=== PATIENT | male | born 1960 | race African-American/Black ===

== ENCOUNTER 2019-08-20 11:46 | Outpatient (CLI) | payer BC, SELFPAY ==
[2019-08-20 12:26] LABS: Hemoglobin A1C 7.8 % (<5.7)
== END 2019-08-20 11:47 | disposition home or self-care (01) ==
DX: E11.9 Type 2 diabetes mellitus without complications (principal)
CPT/HCPCS: 36415; 83036

== ENCOUNTER 2020-01-28 08:51 | Outpatient (CLI) | payer BC, SELFPAY ==
[2020-01-28 09:46] LABS: Alanine Aminotransferase 40 U/L (4-50); Albumin Level 4.4 g/dL (3.5-5.1); Alkaline Phosphatase 105 U/L (38-126); Anion Gap 7 mmol/L (8-16); Aspartate Amino Transferase 40 U/L (17-59); Bilirubin,Total 0.6 mg/dL (0.2-1.3); Blood Urea Nitrogen 23 mg/dL (9-20); Calcium 9.3 mg/dL (8.4-10.2); Carbon Dioxide 34 mmol/L (22-30); Chloride 100 mmol/L (98-107); Cholesterol 118 mg/dL (0-200); Estimated Glomerular Filt Rate > 60; Glucose 152 mg/dL (75-110); HDL Direct 32 mg/dL; Potassium 3.7 mmol/L (3.4-5.0); Sodium 141 mmol/L (137-145); Triglycerides 101 mg/dL (<150); Uric Acid 6.9 mg/dL (3.5-8.5)
[2020-01-28 09:56] LABS: LDL Cholesterol Direct 49 mg/dL
== END 2020-01-28 08:52 | disposition home or self-care (01) ==
PROVIDERS: PCP Internal Medicine; Visit Provider Internal Medicine
DX: E78.2 Mixed hyperlipidemia (principal); E11.9 Type 2 diabetes mellitus without complications
CPT/HCPCS: 36415; 80053; 80061; 83036; 84550

== ENCOUNTER 2023-01-03 09:58 | Emergency (ER) | payer OTHER, SELFPAY ==
[2023-01-03 10:20] VITALS: BP 164/96; PULSE 84; RESP 16; TEMP 37; O2SAT 99
--- NOTE | 2023-01-03 10:31 | ED.BACK ---
HPI - Back Pain/Injury General Chief Complaint: Back Pain/Injury Stated Complaint: right side back pain Time Seen by Provider: 01/03/23 10:21 Source: patient and RN notes reviewed Mode of arrival: ambulatory Limitations: no limitations History of Present Illness HPI Narrative: Patient presents today complaining of right-sided low back pain x2 days. Three days ago he was helping someone lift a motorized scooter. The following day he woke up with severe back pain and spasms. Denies numbness or tingling in the extremities or genitals. Denies radiation of the pain. Denies loss of bowel or bladder control. He is currently pain-free at rest, which increases significantly with any movement. He has been using Tylenol and Leoncio-Barney with mild relief. Related Data Home Medications Medication Instructions Recorded Confirmed allopurinol 100 mg tablet 100 mg PO DAILY 01/03/23 01/03/23 carvedilol 6.25 mg tablet 6.25 mg PO DAILY 01/03/23 01/03/23 empagliflozin 10 mg tablet 10 mg PO DAILY 01/03/23 01/03/23 (Jardiance) glipizide 10 mg tablet, extended 10 mg PO DAILY 01/03/23 01/03/23 release 24 hr olmesartan 40 1 tablet PO DAILY 01/03/23 01/03/23 mg-hydrochlorothiazide 25 mg tablet omeprazole 40 mg capsule,delayed 40 mg PO DAILY 01/03/23 01/03/23 release pravastatin 20 mg tablet 20 mg PO DAILY 01/03/23 01/03/23 Allergies Allergy/AdvReac Type Severity Reaction Status Date / Time No Known Allergies Allergy Verified 01/03/23 10:24 Review of Systems Review of Systems: CONSTITUTIONAL: Denies body aches, fever, chills, or sweats. EYES: Denies visual changes, redness, or discharge. ENT: Denies rhinorrhea, congestion, sore throat, or otalgia. CARDIOVASCULAR: Denies chest pain, palpitations, or edema. RESPIRATORY: Denies cough or dyspnea. GASTROINTESTINAL: Denies abdominal pain, nausea, vomiting, or diarrhea. GENITOURINARY: Denies dysuria or hematuria. SKIN: Denies rash, itching, or wounds. MUSCULOSKELETAL: Denies joint pain, or myalgia.+ back pain NEUROLOGIC: Denies headache, numbness, tingling, or weakness. PSYCH: Denies depression or anxiety. [facility] Past Medical History Medical History (Updated 01/03/23 @ 10:36 by Soni Thorne, [facility], ) Diabetes High cholesterol Hypertension Comments At time of signature, I have reviewed and agree with nursing past medical, surgical, social and family history unless otherwise noted. Please see nursing chart for further information. There is no relevant family history pertinent to the presenting complaint Exam Narrative: GENERAL: Well-appearing, well-nourished, and in no acute distress. HEAD: Normocephalic, atraumatic. EYES: EOMI. No redness or drainage. Conjunctivae normal. ENT: Mucous membranes pink and moist. NECK: Normal AROM. CHEST: No respiratory distress. MUSCULOSKELETAL: No bony tenderness of the spine. Tenderness to the right lower thoracic and lumbar paraspinal muscles. Distal sensation intact. Saddle sensation intact. Capillary refill normal. Dorsiflexion and plantar flexion equal and strong against resistance. EXTREMITIES: Normal range of motion. SKIN: Warm, dry, no rash. Capillary refill normal. Normal skin turgor. NEURO: No focal deficits. Alert and oriented x3. Gait steady. PSYCH: Normal affect. No signs of depression or anxiety. Course Course Level of Care: Express Care Visit Vital Signs Vital signs: Vital Signs Temperature 98.6 F 01/03/23 10:20 Pulse Rate 84 01/03/23 10:20 Respiratory Rate 16 01/03/23 10:20 Blood Pressure 164/96 H 01/03/23 10:20 Pulse Oximetry 99 01/03/23 10:20 Oxygen Delivery Room Air 01/03/23 10:20 Temperature 98.6 F 01/03/23 10:20 Pulse Rate 84 01/03/23 10:20 Respiratory Rate 16 01/03/23 10:20 Blood Pressure 164/96 H 01/03/23 10:20 Pulse Oximetry 99 01/03/23 10:20 Oxygen Delivery Room Air 01/03/23 10:20 Reviewed. Pt has been instructed to follow up with hi
== END 2023-01-03 10:39 | disposition home or self-care (01) ==
PROVIDERS: Emergency Provider Nurse Practitioner; PCP Emergency Medicine
DX: S39.012A Strain of muscle, fascia and tendon of lower back, initial encounter (principal); X50.0XXA Overexertion from strenuous movement or load, initial encounter; E11.9 Type 2 diabetes mellitus without complications; E78.00 Pure hypercholesterolemia, unspecified; I10 Essential (primary) hypertension
CPT/HCPCS: 99213; G0463

== ENCOUNTER → 2023-01-08 09:47 | Outpatient (CLI) | payer OTHER, SELFPAY ==
--- NOTE | ~2023-01-08 | XR_ITS ---
XR lumbar spine 2-3V DATE: 01/08/2023 10:16 INDICATION: Right low back pain after lifting a heavy object TECHNIQUE: AP, lateral, coned lateral lumbosacral views COMPARISON: None FINDINGS: There is minimal lumbar dextroscoliosis. The lumbar pedicles are intact. Likely chronic mild anterior wedging at T12 and L1 vertebral bodies. No recent fracture or bone destr uction or spondylolisthesis. There is degenerative disease throughout the lumbar spine, moderate at L1-2, L2-3, moderately severe 4, severe at L4-5, mild at L5-S1. The sacroiliac joints are intact. IMPRESSION: Multilevel degenerative disc disease Reviewed, dictated and finalized at location A.
== END ==
LOC: EXPCRAD 09:50
PROVIDERS: PCP Emergency Medicine; Visit Provider Emergency Medicine
DX: M51.36 Other intervertebral disc degeneration, lumbar region (principal)
CPT/HCPCS: 72100

== ENCOUNTER 2024-12-23 09:40 | Outpatient (CLI) | payer MEDICARE, SELFPAY ==
--- NOTE | ~2024-12-23 | XR_ITS ---
EXAMINATION: XR foot LT min 3V, 12/23/2024 9:56 CDT HISTORY: L foot pain, LATERAL, NKI COMPARISON: No comparisons available. Findings: No acute fracture or malalignment. No significant degenerative changes. Soft tissues unremarkable. Impression: No acute fracture or malalignment. Reviewed, dictated and finalized at location P. Impression: No acute fracture or malalignment.
== END 2024-12-23 09:41 | disposition home or self-care (01) ==
PROVIDERS: PCP Emergency Medicine; Visit Provider Emergency Medicine
DX: M79.672 Pain in left foot (principal)
CPT/HCPCS: 73630